=== PATIENT | female | born 1975 | race Asian ===

== ENCOUNTER 2018-08-11 08:53 | Emergency (ER) | payer OTHER ==
[2018-08-11] MEDS ORDERED: MAG HYDROX/AL HYDROX/SIMETH 30 ML UDC PO STA (09:11)
[2018-08-11] MEDS ORDERED: LIDOCAINE VISCOUS 2% 15 ML UDC MM STA (09:11)
--- NOTE | 2018-08-11 09:15 | ED Physician Documentation ---
PD HPI CHEST PAIN - Stated complaint Stated Complaint: HIGH BP/CHEST PX - Chief complaint Chief Complaint: Cardiac - History obtained from History obtained from: Patient - History of Present Illness Timing - onset: How many hours ago (3) Timing - onset during: Rest Timing - details: Waxing and waning Pain level max: 1 Pain level now: 1 Quality: Tightness Location: Substernal Worsened by: Inspiration, Position (supine position) Associated symptoms: No: Shortness of air, Nausea, Other Similar symptoms before: No diagnosis (Similar symptoms intermittently for past month or two.) - Additional information Additional information: The patient is a 43-year-old female who presents with mild substernal chest tightness that started when she awoke this morning about 3 hours prior to arrival. She describes it as a "slight heaviness," which she rates at 1 out of 10 in severity. She denies associated nausea, shortness of breath, or diapho resis. Her pain is worse with supine position or with deep inspiration. She reports having similar symptoms intermittently for the past month or 2. She also has noticed that her blood pressure has been gradually going up, and she measured at 161/105 this morning. On further review of systems she denies fever, cough, or dysuria. Review of Systems Constitutional: denies: Fever, Fatigue Ears: denies: Tinnitus/ringing Nose: denies: Congestion Throat: denies: Sore throat Cardiac: reports: Chest pain / pressure, Palpitations (occasional) Respiratory: denies: Dyspnea, Cough GI: denies: Abdominal Pain, Nausea, Vomiting : denies: Dysuria Skin: denies: Rash Musculoskeletal: denies: Back pain, Extremity pain Neurologic: denies: Focal weakness, Numbness, Headache PD PAST MEDICAL HISTORY - Past Medical History Cardiovascular: None Respiratory: None Neuro: None Endocrine/Autoimmune: None - Present Medications Home Medications: Ambulatory Orders Medication Instructions Recorded Confirmed Hydrochlorothiazide 12.5 mg PO DAILY #30 tablet 08/11/18 - Allergies Allergies/Adverse Reactions: Allergies Allergy/AdvReac Type Severity Reaction Status Date / Time mometasone furoate AdvReac Unknown Verified 08/11/18 09:03 [From Nasonex] - Social History Does the pt smoke?: No Smoking Status: Never smoker PD ED PE NORMAL - Vitals Vital signs reviewed: Yes (hypertensive) - General General: Alert and oriented X 3, Well developed/nourished - HEENT HEENT: Atraumatic, Moist mucous membranes, Pharynx benign - Neck Neck: No adenopathy, No JVD - Cardiac Cardiac: RRR, No murmur - Respiratory Respiratory: No respiratory distress, Clear bilaterally - Abdomen Abdomen: Soft, Non tender, Other (Rotund abdomen.) - Back Back: No CVA TTP - Derm Derm: No rash - Extremities Extremities: No edema, No calf tenderness / cord - Neuro Neuro: Alert and oriented X 3, No motor deficit, No sensory deficit Results - Vitals Vitals: Oxygen O2 Source Room air - EKG (time done) 09:00 Rate: Rate (enter#) (78) Rhythm: NSR, LAE Ischemia: T wave inversion (in III). No: ST elevation c/w ischemia Computer interpretation: Agree with computer - Labs Labs: Laboratory Tests 08/11/18 08/11/18 08/11/18 09:25 09:25 09:25 WBC 8.0 RBC 4.55 Hgb 14.0 Hct 40.4 MCV 88.7 MCH 30.8 MCHC 34.7 RDW 13.9 Plt Count 219 MPV 8.3 Neut # (Auto) 5.1 Lymph # (Auto) 2.1 [place] # (Auto) 0.5 Eos # (Auto) 0.1 Baso # (Auto) 0.1 Absolute Nucleated RBC 0.00 Nucleated RBC % 0.0 Sodium 136 Potassium 3.7 Chloride 104 Carbon Dioxide 25 Anion Gap 7.0 BUN 15 Creatinine 0.9 Estimated GFR (MDRD) 68 L Glucose 95 Calcium 8.9 Total Bilirubin 0.6 AST 21 ALT 17 Alkaline Phosphatase 61 Troponin I < 0.04 Total Protein 7.6 Albumin 4.1 Globulin 3.5 Albumin/Globulin Ratio 1.2 Lipase 45 PD MEDICAL DECISION MAKING - ED course Complexity details: reviewed results, re-evaluated patient, considered differential, d/w patient ED course: The underlying cause of the patient's substernal chest pain is not certain at this time, but it is atypical for cardiac etiology. In addition her electrocardiogram reveals no acute ischemic abnormalities, and troponin is normal. CBC is normal and chemistry panel is unremarkable. I suspect gastroesophageal etiology for the patient's symptoms. Her symptoms had resolved prior to treatment with GI cocktail. Her blood pressure however remained elevated. In further discussion she reports it has been elevated like this for several weeks. Given that information I felt it prudent to start her on low dose antihypertensive medication. In the emergency department she was given hydrochlorothiazide 12.5 mg orally. She is being discharged with prescription for hydrochlorothiazide. I discussed with her the importance of urgent outpatient follow-up with attention to any change in potassium level. I also discussed with her potentially worrisome signs or symptoms that should prompt reevaluation in the emergency department. - Sepsis Event Vital Signs: Oxygen O2 Source Room air Departure - Departure Disposition: Home, Self Care Clinical Impression: Atypical chest pain High blood pressure Qualifiers: Hypertension type: unspecified Qualified Code(s): I10 - Essential (primary) hypertension Condition: Stable Instructions: ED Chest Pain Atypical Unkn Cause, ED Hypertension New Begin Tx Follow-Up: Chemo Dickson DO [Primary Care Provider] - Prescriptions: Hydrochlorothiazide 12.5 mg PO DAILY #30 tablet Comments: Begin taking hydrochlorothiazide daily as prescribed. Drink liquid antacid, such as Maalox or Mylanta if you develop recurrent substernal chest discomfort. Follow-up with your primary physician within 1 week. Call to schedule appointment. Return to the emergency department if you develop increasing chest pain or shortness of breath, or otherwise worsening symptoms. Discharge Date/Time: 08/11/18 11:32
[2018-08-11 09:31] LABS: BASOPHILS # (AUTO) 0.1 10^3/uL (0.0-0.1); BASOPHILS % (AUTO) 0.9 %; EOSINOPHILS # (AUTO) 0.1 10^3/uL (0.0-0.7); EOSINOPHILS % (AUTO) 1.8 %; LYMPHOCYTES # (AUTO) 2.1 10^3/uL (1.5-3.5); LYMPHOCYTES % (AUTO) 26.9 %; MEAN CORPUSCULAR HEMOGLOBIN 30.8 pg (27.0-31.0); MEAN CORPUSCULAR HGB CONC 34.7 g/dL (32.0-36.0); MEAN CORPUSCULAR VOLUME 88.7 fL (81.0-99.0); MEAN PLATELET VOLUME 8.3 fL (7.9-10.8); MONOCYTES # (AUTO) 0.5 10^3/uL (0.0-1.0); MONOCYTES % (AUTO) 6.4 %; NEUTROPHILS # (AUTO) 5.1 10^3/uL (1.5-6.6); PLT - PLATELET COUNT 219 10^3/uL (130-450); RED BLOOD COUNT 4.55 10^6/uL (4.20-5.40); RED CELL DISTRIBUTION WIDTH 13.9 % (12.0-15.0)
[2018-08-11 09:46] LABS: ALBUMIN 4.1 g/dL (3.2-5.5); ALBUMIN/GLOBULIN RATIO 1.2 (1.0-2.2); BILIRUBIN,TOTAL 0.6 mg/dL (0.2-1.0); CALCIUM 8.9 mg/dL (8.5-10.3); CREATININE 0.9 mg/dL (0.4-1.0); TOTAL PROTEIN 7.6 g/dL (6.7-8.2)
[2018-08-11] MEDS ORDERED: hydroCHLOROthiazide 25 MG TABLET PO STA (11:01)
[2018-08-11 11:33] VITALS: BP 144/92
== END 2018-08-11 11:32 | disposition home or self-care (01) ==
LOC: ED 08:53
DX: R07.89 Other chest pain (principal); I10 Essential (primary) hypertension; I51.7 Cardiomegaly; R94.31 Abnormal electrocardiogram [ECG] [EKG]
CPT/HCPCS: 36415; 80053; 83690; 84484; 85025; 93005; 99283; 99284; A9270

== ENCOUNTER 2020-08-05 19:30 | Outpatient (CLI) | payer BC, OTHER | END 2020-08-05 23:59 | LOC: SC 19:30 | PROVIDERS: ATTEND Nurse Practitioner Family | DX: R06.83 Snoring (principal); G47.8 Other sleep disorders; R06.81 Apnea, not elsewhere classified; G47.10 Hypersomnia, unspecified; I49.9 Cardiac arrhythmia, unspecified; I10 Essential (primary) hypertension | CPT/HCPCS: 95806 ==

== ENCOUNTER 2020-09-15 10:52 | Outpatient (CLI) | payer BC, OTHER ==
--- NOTE | 2020-09-15 11:31 | SLEEP CARE CONSULTATION ---
Information from patient questionnaire entered by Marlena Pascal. I have reviewed and concur with the information entered by Marlena Pascal. This document represents the service I personally performed and the decisions made by , Naima Jones ARNP. History of Present Illness Service Date and Time: 09/15/2020 1052 Initial Rutherford Sleepiness Scale score: 16 (in 2020) Current R[place]ford Sleepiness Scale score: 13 Additional HPI information: ERIKA HEARD returns for follow up and results of the recently performed home sleep study. The patient was informed of the following findings: Patient had no significant sleep disordered breathing with an average AHI of 1.1 and johanna oxygen saturation of 88%. I explained the pathophysiology behind obstructive sleep apnea. Patient does not have sleep apnea and was advised how weight gain could increase the risk of developing sleep apnea in the future. I strongly encouraged the patient to lose weight. Patient has light snoring. Snoring can be reduced by weight loss. Weight loss is best achieved with diet consult. Patient instructed to contact PCP for referral. Snoring can also be treated with an oral appliance from a dentist. Advised to check insurance coverage. In addition, an ENT evaluation can be do to see if other treatment is indicated. Patient counseled not drink alcohol less than 4 hours before bedtime as it can increase snoring and apnea. Patient was cautioned about risks of drowsy driving until sleepiness symptoms resolve. Sleep Study - Results Type of Sleep Study: Home sleep study Polysomnography/Home Sleep Study results: Based on 4% Calculation: The AHI 4% calculation of 1.1 per hour of recording time was based on a total of 4 scored apneas and 4 scored hypopneas with 4% desaturations. Supine AHI4%: 1.5 per hour. Non-supine AHI4%: 0.4 per hour. Oxygen Summary: Patient's baseline O2 saturation was 97.2 %. The patient spent 0.1 minutes at an oxygen saturation less than 90%, and 0.0 minutes less than 85%. The desaturation index was 1.1 events per hour sleep time. The lowest saturation was 88.0 %. SNORING: The percent of the study time spent snoring was 0.0 %. The Snoring Count was 0 . The Snoring Index was 0.0 . PULSE RATE REVIEW: The mean heart rate was 72 beats per minute. The rate ranged from a low of 52 to a high of 94 beats per minute. Physical Exam Heart Rate: 88 O2 Saturation: 98 Height: 5 ft 2 in Weight: 180 lb Body Mass Index: 32.9 BMI Classification: Obese Impression and Plan 1. Snoring but no significant sleep disordered breathing. Patient advised that often weight loss will reduce snoring as well as apnea risk. An oral appliance can also be used for snoring. This would require a dental consultation. Patient cautioned not to use other online appliances as can cause bite issues. Patient is advised to check if insurance will cover. An ENT consult can also be helpful to determine if any other treatment is an option. 2. Excessive daytime sleepiness. Rutherford 13 today. Patient requesting a note for her work to not have to travel by car too long due to her daytime sleepiness and drowsy driving problem. A note was provided to limit her travel time to 30 minutes to reduce risk of drowsy driving until she is able to reduce her daytime sleepiness. 3. Arrhythmia, unspecified. Patient with some possible SVT which is why she was here for evaluation originally. 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 * Letter to restrict length of drive time for work to reduce risks of drowsy driving * Attempt to lose weight * Avoid alcohol consumption near bedtime * The patient is cautioned about driving until sleepiness is completely resolved. * Return as needed for worsening of symptoms, no improvement of change of symptoms. Counseling Topics: Weight loss health impact Visit Type: In Office Time Spent with Patient (minutes): 17 Provider Statement: I spent 100% of the Face to Face Visit with the patient with greater than 50% spent counseling the patient and coordination of care.
== END 2020-09-15 10:53 | disposition home or self-care (01) ==
LOC: SC 10:52
PROVIDERS: ATTEND Nurse Practitioner Family
DX: R06.83 Snoring (principal); G47.10 Hypersomnia, unspecified; E66.9 Obesity, unspecified; Z68.32 Body mass index [BMI] 32.0-32.9, adult
CPT/HCPCS: 99212

== ENCOUNTER 2023-02-07 08:46 | Outpatient (CLI) | payer OTHER ==
[2023-02-07 09:16] LABS: ALBUMIN 4.2 g/dL (3.2-5.5); ALBUMIN/GLOBULIN RATIO 1.1 (1.0-2.2); BILIRUBIN,TOTAL 0.5 mg/dL (0.2-1.0); CREATININE 0.9 mg/dL (0.4-1.0); POTASSIUM 3.4 mmol/L (3.5-5.0)
== END 2023-02-07 08:47 | disposition home or self-care (01) ==
LOC: LAB 08:46
PROVIDERS: ATTEND Internal Medicine Cardiovascular Disease
DX: I10 Essential (primary) hypertension (principal)
CPT/HCPCS: 36415; 80053; 83735

== ENCOUNTER 2024-02-28 10:00 | Outpatient (CLI) | payer OTHER ==
[2024-02-28 10:22] LABS: CALCIUM 9.8 mg/dL (8.5-10.3); CREATININE 0.9 mg/dL (0.6-1.3); POTASSIUM 4.1 mmol/L (3.5-4.5)
== END 2024-02-28 10:01 | disposition home or self-care (01) ==
LOC: LAB 10:00
PROVIDERS: ATTEND Internal Medicine Cardiovascular Disease
DX: I10 Essential (primary) hypertension (principal)
CPT/HCPCS: 36415; 80048; 83735

== ENCOUNTER 2024-05-08 07:00 | Outpatient (CLI) | payer OTHER ==
--- NOTE | 2024-05-08 10:07 | Ultrasound Report ---
PROCEDURE: Pelvic w/Transvaginal INDICATIONS: RIGHT PELVIC PAIN, CRAMPING TECHNIQUE: Real-time scanning was performed of the pelvic organs, with image documentation. Additional endovagi nal scanning was necessary due to incomplete visualization of the adnexal and endometrial structures by transabdominal scanning. COMPARISON: None. FINDINGS: Uterus: Uterus is anteverted and normal in size at 9.7 x 4.4 x 5.2 cm. The myometrium is heterogene ous. The endometrium measures 5.4 mm in combined thickness. Mid anterior subserosal fibroid measuri ng 1.9 x 1.5 x 2.0 cm. Ovaries: The ovaries are not seen. No adnexal masses. Other: No pathologic free abdominal or pelvic fluid. IMPRESSION: 1.No cause for patient's symptoms is identified. 2.Subserosal fibroid measuring 2 cm. 3.The ovaries are not seen. No adnexal masses. Reviewed by: Horacio Herrera MD on 05/08/2024 10:05 AM PDT Approved by: Horacio Herrera MD on 05/08/2024 10:05 AM PDT Station ID: [id number]
== END 2024-05-08 07:01 | disposition home or self-care (01) ==
LOC: DI 07:00
PROVIDERS: ATTEND Nurse Practitioner Family
DX: R10.2 Pelvic and perineal pain (principal); D25.2 Subserosal leiomyoma of uterus